=== PATIENT | female | born 2000 | race Caucasian/White ===

== ENCOUNTER 2024-08-06 18:40 | Emergency (ER) | payer SELFPAY ==
[2024-08-06 18:44] VITALS: BP 115/73; PULSE 100; RESP 20; TEMP 36.9; O2SAT 98
[2024-08-06] MEDS: Amox. 875/Clav. 125, 2 TABS/BTL 1 TAB PO (19:08)
[2024-08-06] MEDS: Mupirocin 2% Oint. 22 GM TUBE TP (19:08)
[2024-08-06 19:09] VITALS: BP 115/73; BP 118/72; PULSE 100; PULSE 89; RESP 18; RESP 20; TEMP 36.9; O2SAT 98
--- NOTE | 2024-08-06 22:27 | W.ED.GENAD ---
Discharge Plan Disposition Patient Disposition: Home Condition: Stable Discharge Details Clinical Impression: Cat bite of foot Primary Care Provider: None,None ED Provider: Yesenia Gamble Home Meds and New Rx's Prescriptions: New amoxicillin-pot clavulanate 875-125 mg tablet 1 tab PO BID 7 Days Qty: 14 0RF Discharge Instructions Instructions: Animal Bites ED Additional Instructions: tetanus shot deferred, please get when you are able no indicated for rabies start antibiotics as prescribed keep area clean with soap and water. apply provided ointment 3 times daily. return to ED with worsening swelling, pain, drainage, any redness coming up legs, fever HPI General Date/Time Provider Initiated Documentation: 08/06/24 18:57. Limitations to Documentation: no limitations. Information obtained by: patient. HPI Narrative: 24-year-old female without significant past medical history presents for evaluation of left foot injury. She reports last night around 4 AM her roommates cat bit her in the foot. Cat is vaccinated. She reports that her tetanus is unlikely to be up-to-date. She reports some tenderness around the bite renner and a little bit of redness there but, but has been able to walk normally. Related Data Home Medications ?Medication ?Instructions ?Recorded ?Confirmed amoxicillin 875 mg-potassium 1 tab PO BID 7 days #14 tabs 08/06/24 clavulanate 125 mg tablet Previous Rx's ?Medication ?Instructions ?Recorded amoxicillin 875 mg-potassium 1 tab PO BID 7 days #14 tabs 08/06/24 clavulanate 125 mg tablet Allergies Allergy/AdvReac Type Severity Reaction Status Date / Time No Known Allergies Allergy Unverified 08/06/24 18:43 General Stated Complaint: AnimalBite JER: 4 Exam Narrative Exam Narrative: Review of Systems: All systems reviewed & are unremarkable except as noted in HPI and below Well-developed, no acute distress NCAT RRR Unlabored respiratory effort Left foot with 2 small wounds, scabs over them with a little small amount of erythema, not puffy, not draining, no significant tenderness and no lymphangitic Course Vital Signs Vital signs: Vital Signs Temperature 36.9 C 08/06/24 18:44 Pulse 100 H 08/06/24 18:44 Respiratory Rate 20 08/06/24 18:44 Blood Pressure 115/73 08/06/24 18:44 Pulse Oximetry 98 08/06/24 18:44 Temperature 36.9 C 08/06/24 19:09 Temperature Source Oral 08/06/24 19:09 Pulse 100 H 08/06/24 19:09 Respiratory Rate 20 08/06/24 19:09 Blood Pressure 115/73 08/06/24 19:09 Blood Pressure Position Sitting 08/06/24 19:09 Pulse Oximetry 98 08/06/24 19:09 Oxygen Delivery Method Room Air 08/06/24 19:09 Oxygen Flow Rate 0 08/06/24 18:44 Pain Level 3 08/06/24 19:09 Medical Decision Making Emergent evaluation of cat bite. Initial differential includes local skin infection, no evidence of deep space infection or sepsis. Recommend local wound care and provided with mupirocin ointment. She will be prescribed Augmentin and first doses were given in the emergency department. She was advised to get a tetanus shot since she does not have one up-to-date, but she did not want to get one until she has her insurance next month. She reports that she will get 1 at that time. The cat is a pet and vaccinated and there is no indication for rabies series for the patient. Return precautions advised. [facility] All Active Problems (Updated 08/06/24 @ 19:01 by Yesenia Gamble MD) Cat bite of foot (Acute) Social History Smoking/Tobacco Use Status: Never Smoking risk assessment performed?: Yes Alcohol Intake: never Drug use: Daily Substance use type: marijuana Housing: house Do you feel safe at home: Yes Do you feel safe in your relationship?: Yes
== END 2024-08-06 19:11 | disposition home or self-care (01) ==
PROVIDERS: Emergency Provider Emergency Medicine
DX: S90.872A Other superficial bite of left foot, initial encounter (principal); W55.01XA Bitten by cat, initial encounter; Y93.89 Activity, other specified; Y92.018 Other place in single-family (private) house as the place of occurrence of the external cause
CPT/HCPCS: 99283

== ENCOUNTER 2024-08-09 15:07 | Emergency (ER) | payer SELFPAY ==
[2024-08-09 15:25] VITALS: BP 132/81; PULSE 66; RESP 16; TEMP 36.6; O2SAT 98
--- NOTE | 2024-08-09 16:03 | ED.GENADUL_ITS ---
Discharge Plan Disposition Patient Disposition: Home Condition: Stable Discharge Details Clinical Impression: Cat bite of foot Primary Care Provider: None,None ED Provider: Machelle Cespedes Home Meds and New Rx's Prescriptions: No Action amoxicillin-pot clavulanate 875-125 mg tablet 1 tab PO BID 7 Days Qty: 14 0RF Discharge Instructions Instructions: Animal Bites ED, Excuse from School, Work, or Physical Activity ED Additional Instructions: Please observe for any worsening pain, redness, swelling, line going up your leg, pus/drainage, etc. if this happens return to the emergency department immediately otherwise keep your leg elevated. Take [id number] ibuprofen for pain relief and take your antibiotics as prescribed. HPI General Date/Time Provider Initiated Documentation: 08/09/24 15:10 . History of Present Illness 24 year old F presents to the emergency department with the chief complaint of Review of systems are negative except as mentioned., HPI Narrative: The patient is a 24-year-old female without any significant past medical history who returns to the emergency department for cat bite to her right foot. The patient reports that about 5 days ago she was bitten by pet cat. Reports that she came here today after and received antibiotics. Reports has been taking this as prescribed. Reports that she has been on her feet all day and this afternoon is the first time she has been able to take some time for herself and was looking at her foot and noticed that there was a bump on the outer part of her right foot. Reports that her foot did have some pus from the day she was in the emergency department but this has since stopped. Reports she had not been bitten on the same foot again. Denies any fever with this. Denies any trauma or injury to the foot apart in the cat bite. Related Data Home Medications ?Medication ?Instructions ?Recorded ?Confirmed amoxicillin 875 mg-potassium 1 tab PO BID 7 days #14 t abs 08/06/24 08/09/24 clavulanate 125 mg tablet Previous Rx's ?Medication ?Instructions ?Recorded amoxicillin 875 mg-potassium 1 tab PO BID 7 days #14 t abs 08/06/24 clavulanate 125 mg tablet Allergies Allergy/AdvReac Type Severity Reaction Status Date / Time No Known Allergies Allergy Verified 08/09/24 15:25 General Stated Complaint: Recheck JER: 4 Exam Narrative Exam Narrative: General appearance: The patient is alert, has no immediate need for airway protection and no signs of toxicity. Cardiovascular: Patient has intact right dorsalis pedis pulse. Neurological: The patient is alert, awake and oriented x 3. Patient has intact station to light touch throughout the entire right foot. Skin: The patient has 2 puncture wound site on the dorsum of the right foot with surrounding bruising, without drainage, without increased warmth to touch or erythema. The wound is clean and dry. Extremities: Patient has swelling along the puncture wound site without tenderness to palpation on bony prominences of the entire right foot. There is no tenderness elicited range of motion testing to the right foot and ankle and no limitation range of motion testing in all planes is elicited also in the right foot and ankle. There is no calf tenderness to palpation. There is no proximal congenic streaking. Course Vital Signs Vital signs: Vital Signs Temperature 36.6 C 08/09/24 15:25 Pulse 66 08/09/24 15:25 Respiratory Rate 16 08/09/24 15:25 Blood Pressure 132/81 08/09/24 15:25 Pulse Oximetry 98 08/09/24 15:25 Temperature 36.6 C 08/09/24 15:25 Temperature Source Oral 08/09/24 15:25 Pulse 66 08/09/24 15:25 Respiratory Rate 16 08/09/24 15:25 Blood Pressure 132/81 08/09/24 15:25 Blood Pressure Position Sitting 08/09/24 15:25 Pulse Oximetry 98 08/09/24 15:25 Oxygen Delivery Method Room Air 08/09/24 15:25 Oxygen Flow Rate 0 08/09/24 15:25 Pain Level 4 08/09/24 15:25 Medical Decision Making The patient does have mild swelling around the puncture wound site however the wound is not erythematous and not hyperemic. Overall physical exam is unremarkable which is reassuring. For this I recommended conservative management with continued use of antibiotics. I encouraged ibuprofen as needed for pain relief and encouraged her to keep the foot elevated. She will be given a work note as well and in the meantime asked to observe for any signs of worsening symptoms and if this happens return to the emergency department immediately. I did have a discussion with the patient regarding trial of more antibiotics and at this point plan is to hold off and continue use of the antibiotic that she was initially prescribed. Patient also continued to want to hold off on tetanus booster. PFSH All Active Problems (Updated 08/09/24 @ 16:05 by Machelle Cespedes DO) Cat bite of foot (Acute) Social History Smoking/Tobacco Use Status: Never Smoking risk assessment performed?: Yes Alcohol Intake: never Drug use: Daily Substance use type: marijuana Housing: house Do you feel safe at home: Yes Do you feel safe in your relationship?: Yes
== END 2024-08-09 16:13 | disposition home or self-care (01) ==
PROVIDERS: Emergency Provider Emergency Medicine
DX: R22.41 Localized swelling, mass and lump, right lower limb (principal)
CPT/HCPCS: 99282